=== PATIENT | female | born 1945 | race Caucasian/White ===

== ENCOUNTER 2021-07-19 11:05 | Inpatient (IN) ==
[2021-07-19] MEDS: Acetaminophen 325 MG TABLET PO PRN (23:40)
[2021-07-19] MEDS: *HR* Metformin 500 MG TABLET PO SCH (23:40)
[2021-07-19] MEDS: BuPROPion SR (12 HR) 150 MG TABLET PO SCH (23:41)
[2021-07-20 06:14] LABS: Basophils % 0.2 %; Hematocrit 37.2 % (35.3-44.9); Hemoglobin 12.2 g/dL (11.5-15.4); Immature Granulocytes % 1.7 % (0-4); Lymphocytes # 1.4 K/mcL (0.6-4.6); Lymphocytes % 7.5 %; Mean Corpuscular HGB Conc 32.8 g/dL (31.6-35.5); Mean Corpuscular Hemoglobin 25.7 pg (28.0-33.3); Mean Corpuscular Volume 78.5 fL (83.0-100.0); Monocytes # 1.4 K/mcL (0.0-1.3); Monocytes % 7.8 %; Platelet Count 214 K/mcL (140-400); Red Blood Count 4.74 M/mcL (3.82-4.97); Red Cell Distribution Width 14.6 % (11.5-14.5); Segmented Neutrophils % 82.8 %; White Blood Count 18.1 K/mcL (4.3-11.1)
[2021-07-20 06:25] LABS: Calcium 8.6 mg/dL (8.6-10.3); Potassium 4.1 mEq/L (3.5-5.1)
[2021-07-20] MEDS: GlipiZIDE 5 MG TABLET PO SCH (09:14)
[2021-07-20] MEDS: *HR* Metformin 500 MG TABLET PO SCH ×2 (09:15→21:15)
[2021-07-20] MEDS: amLODIPine 5 MG TABLET PO SCH (09:16)
[2021-07-20] MEDS: carvediloL 6.25 MG TABLET PO SCH ×2 (09:16→19:45)
[2021-07-20] MEDS: BuPROPion SR (12 HR) 150 MG TABLET PO SCH ×2 (09:16→21:14)
[2021-07-20] MEDS: CYANOCOBALAMIN PO SCH (09:17)
[2021-07-20] MEDS: FOLIC AC PO SCH (09:17)
[2021-07-20] MEDS: VIT B6 PO SCH (09:17)
[2021-07-21] MEDS: *HR* Enoxaparin 40 MG/0.4 ML SYRINGE SQ SCH (04:17)
[2021-07-21] MEDS: Levothyroxine 25 MCG TABLET PO SCH (04:17)
[2021-07-21] MEDS: *HR* Metformin 500 MG TABLET PO SCH ×2 (08:56→22:34)
[2021-07-21] MEDS: BuPROPion SR (12 HR) 150 MG TABLET PO SCH ×2 (08:56→22:34)
[2021-07-21] MEDS: GlipiZIDE 5 MG TABLET PO SCH (08:56)
[2021-07-21] MEDS: carvediloL 6.25 MG TABLET PO SCH ×2 (08:57→17:36)
[2021-07-21] MEDS: amLODIPine 5 MG TABLET PO SCH (08:57)
[2021-07-21] MEDS: CYANOCOBALAMIN PO SCH (08:58)
[2021-07-21] MEDS: VIT B6 PO SCH (08:58)
[2021-07-21] MEDS: FOLIC AC PO SCH (08:58)
[2021-07-21] MEDS: Gabapentin 100 MG CAPSULE PO SCH ×3 (12:26→22:34)
[2021-07-22 05:12] LABS: Basophils % 0.1 %; Eosinophils % 0.3 %; Hemoglobin 11.1 g/dL (11.5-15.4); Immature Granulocytes % 1.7 % (0-4); Lymphocytes # 1.3 K/mcL (0.6-4.6); Lymphocytes % 8.5 %; Mean Corpuscular HGB Conc 31.7 g/dL (31.6-35.5); Mean Corpuscular Hemoglobin 25.8 pg (28.0-33.3); Mean Corpuscular Volume 81.2 fL (83.0-100.0); Mean Platelet Volume 10.4 fL (9.4-12.4); Monocytes # 1.7 K/mcL (0.0-1.3); Monocytes % 11.2 %; Neutrophils # 11.7 K/mcL (1.6-8.9); Platelet Count 157 K/mcL (140-400); Red Blood Count 4.31 M/mcL (3.82-4.97); Red Cell Distribution Width 15.1 % (11.5-14.5); Segmented Neutrophils % 78.2 %; White Blood Count 14.9 K/mcL (4.3-11.1)
[2021-07-22 05:25] LABS: Calcium 8.6 mg/dL (8.6-10.3); Potassium 4.1 mEq/L (3.5-5.1)
[2021-07-22] MEDS: *HR* Enoxaparin 40 MG/0.4 ML SYRINGE SQ SCH ×2 (06:35→07:55)
[2021-07-22] MEDS: Levothyroxine 25 MCG TABLET PO SCH ×2 (06:35→07:55)
[2021-07-22] MEDS: carvediloL 6.25 MG TABLET PO SCH ×2 (09:37→16:06)
[2021-07-22] MEDS: Gabapentin 100 MG CAPSULE PO SCH ×4 (09:37→22:07)
[2021-07-22] MEDS: GlipiZIDE 5 MG TABLET PO SCH (09:37)
[2021-07-22] MEDS: BuPROPion SR (12 HR) 150 MG TABLET PO SCH ×2 (09:38→22:07)
[2021-07-22] MEDS: FOLIC AC PO SCH (09:38)
[2021-07-22] MEDS: VIT B6 PO SCH (09:38)
[2021-07-22] MEDS: *HR* Metformin 500 MG TABLET PO SCH ×2 (09:38→22:07)
[2021-07-22] MEDS: CYANOCOBALAMIN PO SCH (09:38)
[2021-07-22] MEDS: amLODIPine 5 MG TABLET PO SCH (09:38)
[2021-07-22] MEDS ORDERED: Ondansetron 4 MG/2 ML VIAL IVP PRN (13:38)
[2021-07-22] MEDS: Acetaminophen 325 MG TABLET PO PRN (22:07)
[2021-07-23] MEDS: Levothyroxine 25 MCG TABLET PO SCH (05:22)
[2021-07-23] MEDS: *HR* Enoxaparin 40 MG/0.4 ML SYRINGE SQ SCH (05:22)
[2021-07-23] MEDS: *HR* Metformin 500 MG TABLET PO SCH ×2 (08:30→20:45)
[2021-07-23] MEDS: GlipiZIDE 5 MG TABLET PO SCH (08:30)
[2021-07-23] MEDS: Gabapentin 100 MG CAPSULE PO SCH ×3 (08:31→20:44)
[2021-07-23] MEDS: BuPROPion SR (12 HR) 150 MG TABLET PO SCH ×2 (08:31→20:44)
[2021-07-23] MEDS: amLODIPine 5 MG TABLET PO SCH (08:31)
[2021-07-23] MEDS: carvediloL 6.25 MG TABLET PO SCH ×2 (08:31→17:12)
[2021-07-23] MEDS: VIT B6 PO SCH (08:37)
[2021-07-23] MEDS: FOLIC AC PO SCH (08:37)
[2021-07-23] MEDS: CYANOCOBALAMIN PO SCH (08:37)
[2021-07-24 04:55] LABS: Basophils % 0.1 %; Eosinophils # 0.1 K/mcL (0.0-0.6); Eosinophils % 0.7 %; Hemoglobin 10.4 g/dL (11.5-15.4); Immature Granulocytes % 0.8 % (0-4); Lymphocytes # 1.2 K/mcL (0.6-4.6); Lymphocytes % 10.7 %; Mean Corpuscular HGB Conc 30.6 g/dL (31.6-35.5); Mean Corpuscular Hemoglobin 25.4 pg (28.0-33.3); Mean Corpuscular Volume 83.1 fL (83.0-100.0); Mean Platelet Volume 10.1 fL (9.4-12.4); Monocytes % 8.7 %; Neutrophils # 8.6 K/mcL (1.6-8.9); Platelet Count 133 K/mcL (140-400); Red Blood Count 4.09 M/mcL (3.82-4.97); Red Cell Distribution Width 15.4 % (11.5-14.5); White Blood Count 10.9 K/mcL (4.3-11.1)
[2021-07-24] MEDS: *HR* Enoxaparin 40 MG/0.4 ML SYRINGE SQ SCH (05:03)
[2021-07-24] MEDS: Levothyroxine 25 MCG TABLET PO SCH (05:04)
[2021-07-24 05:10] LABS: Calcium 8.7 mg/dL (8.6-10.3); Potassium 4.9 mEq/L (3.5-5.1)
[2021-07-24] MEDS: amLODIPine 5 MG TABLET PO SCH (08:08)
[2021-07-24] MEDS: BuPROPion SR (12 HR) 150 MG TABLET PO SCH ×2 (08:08→21:00)
[2021-07-24] MEDS: carvediloL 6.25 MG TABLET PO SCH ×2 (08:08→17:15)
[2021-07-24] MEDS: GlipiZIDE 5 MG TABLET PO SCH (08:08)
[2021-07-24] MEDS: VIT B6 PO SCH (08:09)
[2021-07-24] MEDS: FOLIC AC PO SCH (08:09)
[2021-07-24] MEDS: CYANOCOBALAMIN PO SCH (08:09)
[2021-07-24] MEDS: Gabapentin 100 MG CAPSULE PO SCH ×3 (08:09→21:01)
[2021-07-24] MEDS: *HR* Metformin 500 MG TABLET PO SCH ×2 (08:09→21:01)
[2021-07-24] MEDS ORDERED: Perflutren Lipid Microsphere 1.3 ML in 0.9 % Sodium Chloride 8.7 ML IVP PRN (14:09)
[2021-07-24] MEDS ORDERED: 0.9 % Sodium Chloride 1,000 ML IVC SCH (14:15)
[2021-07-25] MEDS: *HR* Enoxaparin 40 MG/0.4 ML SYRINGE SQ SCH (04:35)
[2021-07-25] MEDS: Levothyroxine 25 MCG TABLET PO SCH (04:37)
[2021-07-25] MEDS: BuPROPion SR (12 HR) 150 MG TABLET PO SCH ×2 (08:02→20:12)
[2021-07-25] MEDS: Gabapentin 100 MG CAPSULE PO SCH ×3 (08:02→20:11)
[2021-07-25] MEDS: carvediloL 6.25 MG TABLET PO SCH ×2 (08:02→17:51)
[2021-07-25] MEDS: *HR* Metformin 500 MG TABLET PO SCH (08:02)
[2021-07-25] MEDS: GlipiZIDE 5 MG TABLET PO SCH (08:02)
[2021-07-25] MEDS: CYANOCOBALAMIN PO SCH (08:03)
[2021-07-25] MEDS: FOLIC AC PO SCH (08:03)
[2021-07-25] MEDS: VIT B6 PO SCH (08:03)
[2021-07-26] MEDS: *HR* Enoxaparin 40 MG/0.4 ML SYRINGE SQ SCH (05:43)
[2021-07-26] MEDS: Levothyroxine 25 MCG TABLET PO SCH (05:43)
[2021-07-26 05:51] LABS: Hematocrit 29.9 % (35.3-44.9); Hemoglobin 9.4 g/dL (11.5-15.4); Mean Corpuscular HGB Conc 31.4 g/dL (31.6-35.5); Mean Corpuscular Hemoglobin 26.1 pg (28.0-33.3); Mean Corpuscular Volume 83.1 fL (83.0-100.0); Mean Platelet Volume 10.5 fL (9.4-12.4); Platelet Count 124 K/mcL (140-400); Red Cell Distribution Width 15.6 % (11.5-14.5)
[2021-07-26 06:05] LABS: Calcium 8.5 mg/dL (8.6-10.3); Potassium 4.2 mEq/L (3.5-5.1)
[2021-07-26] MEDS: BuPROPion SR (12 HR) 150 MG TABLET PO SCH ×2 (08:00→20:11)
[2021-07-26] MEDS: Acetaminophen 325 MG TABLET PO PRN ×2 (08:01→20:11)
[2021-07-26] MEDS: carvediloL 6.25 MG TABLET PO SCH ×2 (08:01→15:48)
[2021-07-26] MEDS: Gabapentin 100 MG CAPSULE PO SCH ×3 (08:01→20:11)
[2021-07-26] MEDS: GlipiZIDE 5 MG TABLET PO SCH (08:01)
[2021-07-26] MEDS: FOLIC AC PO SCH (08:02)
[2021-07-26] MEDS: VIT B6 PO SCH (08:02)
[2021-07-26] MEDS: CYANOCOBALAMIN PO SCH (08:02)
[2021-07-27] MEDS: *HR* Enoxaparin 40 MG/0.4 ML SYRINGE SQ SCH (05:24)
[2021-07-27] MEDS: Levothyroxine 25 MCG TABLET PO SCH (05:24)
[2021-07-27 05:48] LABS: Basophils % 0.2 %; Eosinophils # 0.1 K/mcL (0.0-0.6); Eosinophils % 2.8 %; Hematocrit 28.6 % (35.3-44.9); Hemoglobin 9.1 g/dL (11.5-15.4); Immature Granulocytes % 1.1 % (0-4); Lymphocytes % 21.1 %; Mean Corpuscular HGB Conc 31.8 g/dL (31.6-35.5); Mean Corpuscular Hemoglobin 26.3 pg (28.0-33.3); Mean Corpuscular Volume 82.7 fL (83.0-100.0); Mean Platelet Volume 10.3 fL (9.4-12.4); Monocytes # 0.5 K/mcL (0.0-1.3); Monocytes % 10.1 %; Platelet Count 108 K/mcL (140-400); Red Blood Count 3.46 M/mcL (3.82-4.97); Red Cell Distribution Width 15.5 % (11.5-14.5); Segmented Neutrophils % 64.7 %; White Blood Count 4.7 K/mcL (4.3-11.1)
[2021-07-27] MEDS: carvediloL 6.25 MG TABLET PO SCH ×2 (08:09→16:30)
[2021-07-27] MEDS: Gabapentin 100 MG CAPSULE PO SCH ×3 (08:09→21:55)
[2021-07-27] MEDS: BuPROPion SR (12 HR) 150 MG TABLET PO SCH ×2 (08:09→21:55)
[2021-07-27] MEDS: GlipiZIDE 5 MG TABLET PO SCH (08:09)
[2021-07-27] MEDS: VIT B6 PO SCH (08:10)
[2021-07-27] MEDS: FOLIC AC PO SCH (08:10)
[2021-07-27] MEDS: CYANOCOBALAMIN PO SCH (08:10)
[2021-07-27 12:35] LABS: % Iron Saturation 8 % (15-50); Iron 20 mcg/dL (50-170); Transferrin 181 mg/dL (203-362)
[2021-07-27 12:53] LABS: Ferritin 64 ng/mL (10-120)
[2021-07-28] MEDS: Levothyroxine 25 MCG TABLET PO SCH (06:00)
[2021-07-28] MEDS: *HR* Enoxaparin 40 MG/0.4 ML SYRINGE SQ SCH (06:00)
[2021-07-28] MEDS: GlipiZIDE 5 MG TABLET PO SCH (08:37)
[2021-07-28] MEDS: BuPROPion SR (12 HR) 150 MG TABLET PO SCH ×2 (08:37→20:04)
[2021-07-28] MEDS: Ascorbic Acid 500 MG TABLET PO SCH (08:37)
[2021-07-28] MEDS: carvediloL 6.25 MG TABLET PO SCH ×2 (08:37→18:39)
[2021-07-28] MEDS: Gabapentin 100 MG CAPSULE PO SCH ×3 (08:37→20:04)
[2021-07-28] MEDS: FOLIC AC PO SCH (08:42)
[2021-07-28] MEDS: CYANOCOBALAMIN PO SCH (08:42)
[2021-07-28] MEDS: VIT B6 PO SCH (08:42)
[2021-07-28] MEDS: Acetaminophen 325 MG TABLET PO PRN (20:04)
[2021-07-29] MEDS: *HR* Enoxaparin 40 MG/0.4 ML SYRINGE SQ SCH (05:40)
[2021-07-29] MEDS: Levothyroxine 25 MCG TABLET PO SCH (05:40)
[2021-07-29] MEDS: CYANOCOBALAMIN PO SCH (07:50)
[2021-07-29] MEDS: VIT B6 PO SCH (07:50)
[2021-07-29] MEDS: FOLIC AC PO SCH (07:50)
[2021-07-29] MEDS: carvediloL 6.25 MG TABLET PO SCH ×2 (08:04→16:44)
[2021-07-29] MEDS: Gabapentin 100 MG CAPSULE PO SCH ×3 (09:01→19:36)
[2021-07-29] MEDS: BuPROPion SR (12 HR) 150 MG TABLET PO SCH ×2 (09:01→19:36)
[2021-07-29] MEDS: GlipiZIDE 5 MG TABLET PO SCH (09:01)
[2021-07-29] MEDS: Ascorbic Acid 500 MG TABLET PO SCH (09:02)
[2021-07-30] MEDS: *HR* Enoxaparin 40 MG/0.4 ML SYRINGE SQ SCH (06:20)
[2021-07-30] MEDS: Levothyroxine 25 MCG TABLET PO SCH (06:20)
[2021-07-30] MEDS: carvediloL 6.25 MG TABLET PO SCH ×2 (08:54→15:50)
[2021-07-30] MEDS: BuPROPion SR (12 HR) 150 MG TABLET PO SCH ×2 (08:54→21:18)
[2021-07-30] MEDS: Gabapentin 100 MG CAPSULE PO SCH ×3 (08:55→21:18)
[2021-07-30] MEDS: Ascorbic Acid 500 MG TABLET PO SCH (08:55)
[2021-07-30] MEDS: GlipiZIDE 5 MG TABLET PO SCH (08:55)
[2021-07-30] MEDS: CYANOCOBALAMIN PO SCH (09:01)
[2021-07-30] MEDS: VIT B6 PO SCH (09:01)
[2021-07-30] MEDS: FOLIC AC PO SCH (09:01)
[2021-07-30] MEDS: Acetaminophen 325 MG TABLET PO PRN (15:50)
[2021-07-31] MEDS: Levothyroxine 25 MCG TABLET PO SCH (05:49)
[2021-07-31] MEDS: *HR* Enoxaparin 40 MG/0.4 ML SYRINGE SQ SCH (05:49)
[2021-07-31] MEDS: BuPROPion SR (12 HR) 150 MG TABLET PO SCH ×2 (09:47→20:22)
[2021-07-31] MEDS: Ascorbic Acid 500 MG TABLET PO SCH (09:47)
[2021-07-31] MEDS: Gabapentin 100 MG CAPSULE PO SCH ×3 (09:47→20:22)
[2021-07-31] MEDS: carvediloL 6.25 MG TABLET PO SCH ×2 (09:48→14:35)
[2021-07-31] MEDS: Acetaminophen 325 MG TABLET PO PRN (09:48)
[2021-07-31] MEDS: GlipiZIDE 5 MG TABLET PO SCH (09:48)
[2021-07-31] MEDS: CYANOCOBALAMIN PO SCH (09:49)
[2021-07-31] MEDS: FOLIC AC PO SCH (09:49)
[2021-07-31] MEDS: VIT B6 PO SCH (09:49)
[2021-08-01] MEDS: Levothyroxine 25 MCG TABLET PO SCH (05:40)
[2021-08-01] MEDS: *HR* Enoxaparin 40 MG/0.4 ML SYRINGE SQ SCH (05:40)
[2021-08-01 05:53] LABS: Hematocrit 30.6 % (35.3-44.9); Hemoglobin 9.5 g/dL (11.5-15.4); Mean Corpuscular Volume 83.8 fL (83.0-100.0); Platelet Count 138 K/mcL (140-400); Red Blood Count 3.65 M/mcL (3.82-4.97); Red Cell Distribution Width 16.2 % (11.5-14.5); White Blood Count 4.3 K/mcL (4.3-11.1)
[2021-08-01 07:21] LABS: Albumin 3.1 g/dL (3.5-5.7); Albumin/Globulin Ratio 1.2 (1.1-2.2); Bilirubin,Total 0.2 mg/dL (0.3-1.0); Calcium 8.6 mg/dL (8.6-10.3); Globulin 2.5 g/dL (2.4-3.5); Magnesium 1.4 mg/dL (1.6-2.6); Potassium 4.2 mEq/L (3.5-5.1); Total Protein 5.6 g/dL (6.4-8.9)
[2021-08-01] MEDS: Ascorbic Acid 500 MG TABLET PO SCH (09:29)
[2021-08-01] MEDS: carvediloL 6.25 MG TABLET PO SCH ×2 (09:29→17:13)
[2021-08-01] MEDS: BuPROPion SR (12 HR) 150 MG TABLET PO SCH ×2 (09:29→20:37)
[2021-08-01] MEDS: GlipiZIDE 5 MG TABLET PO SCH (09:30)
[2021-08-01] MEDS: Gabapentin 100 MG CAPSULE PO SCH ×3 (09:30→20:36)
[2021-08-01] MEDS: FOLIC AC PO SCH (09:31)
[2021-08-01] MEDS: CYANOCOBALAMIN PO SCH (09:31)
[2021-08-01] MEDS: VIT B6 PO SCH (09:31)
[2021-08-01] MEDS: Magnesium Oxide 400 MG TABLET PO SCH ×2 (14:03→20:36)
[2021-08-02] MEDS: Levothyroxine 25 MCG TABLET PO SCH (04:06)
[2021-08-02] MEDS: *HR* Enoxaparin 40 MG/0.4 ML SYRINGE SQ SCH (04:06)
[2021-08-02] MEDS: carvediloL 6.25 MG TABLET PO SCH ×2 (07:56→18:41)
[2021-08-02] MEDS: BuPROPion SR (12 HR) 150 MG TABLET PO SCH ×2 (07:56→20:29)
[2021-08-02] MEDS: Ascorbic Acid 500 MG TABLET PO SCH (07:57)
[2021-08-02] MEDS: Magnesium Oxide 400 MG TABLET PO SCH ×2 (07:57→20:29)
[2021-08-02] MEDS: CYANOCOBALAMIN PO SCH (07:58)
[2021-08-02] MEDS: FOLIC AC PO SCH (07:58)
[2021-08-02] MEDS: GlipiZIDE 5 MG TABLET PO SCH (07:58)
[2021-08-02] MEDS: VIT B6 PO SCH (07:58)
[2021-08-02] MEDS: Gabapentin 100 MG CAPSULE PO SCH ×2 (07:58→18:06)
[2021-08-02] MEDS ORDERED: polyethylene glycoL 3350 17 GM POWD.PACK PO PRN (15:44)
[2021-08-02 16:47] LABS: Bilirubin,Urine Negative (Negative); Blood,Urine Negative (Negative); Clarity,Urine Clear (Clear); Color,Urine Yellow (Yellow); Glucose,Urine (UA) Normal (Normal); Ketones,Urine Negative (Negative); Leukocyte Esterase,Urine Negative (Negative); Nitrite,Urine Negative (Negative); PH,Urine 5.5 pH Units (5.0-8.0); Protein,Urine Negative (Neg-Trace); Urobilinogen,Urine Normal (Normal)
[2021-08-02] MEDS: Gabapentin 300 MG CAPSULE PO SCH (20:29)
[2021-08-03] MEDS: *HR* Enoxaparin 40 MG/0.4 ML SYRINGE SQ SCH (04:36)
[2021-08-03] MEDS: Levothyroxine 25 MCG TABLET PO SCH (04:36)
[2021-08-03] MEDS: Acetaminophen 325 MG TABLET PO PRN (08:23)
[2021-08-03] MEDS: Gabapentin 300 MG CAPSULE PO SCH ×3 (08:23→21:25)
[2021-08-03] MEDS: Magnesium Oxide 400 MG TABLET PO SCH ×2 (08:23→21:25)
[2021-08-03] MEDS: GlipiZIDE 5 MG TABLET PO SCH (08:23)
[2021-08-03] MEDS: BuPROPion SR (12 HR) 150 MG TABLET PO SCH ×2 (08:24→21:25)
[2021-08-03] MEDS: carvediloL 6.25 MG TABLET PO SCH ×2 (08:24→16:14)
[2021-08-03] MEDS: Ascorbic Acid 500 MG TABLET PO SCH (08:24)
[2021-08-03] MEDS: CYANOCOBALAMIN PO SCH (08:25)
[2021-08-03] MEDS: FOLIC AC PO SCH (08:25)
[2021-08-03] MEDS: VIT B6 PO SCH (08:25)
[2021-08-04] MEDS: *HR* Enoxaparin 40 MG/0.4 ML SYRINGE SQ SCH (04:34)
[2021-08-04] MEDS: Levothyroxine 25 MCG TABLET PO SCH (04:34)
[2021-08-04] MEDS: carvediloL 6.25 MG TABLET PO SCH ×2 (08:22→15:45)
[2021-08-04] MEDS: Gabapentin 300 MG CAPSULE PO SCH ×3 (08:22→21:26)
[2021-08-04] MEDS: GlipiZIDE 5 MG TABLET PO SCH (08:22)
[2021-08-04] MEDS: Acetaminophen 325 MG TABLET PO PRN ×2 (08:23→21:26)
[2021-08-04] MEDS: Magnesium Oxide 400 MG TABLET PO SCH ×2 (08:23→21:25)
[2021-08-04] MEDS: Ascorbic Acid 500 MG TABLET PO SCH (08:24)
[2021-08-04] MEDS: CYANOCOBALAMIN PO SCH (08:24)
[2021-08-04] MEDS: FOLIC AC PO SCH (08:24)
[2021-08-04] MEDS: VIT B6 PO SCH (08:24)
[2021-08-04] MEDS: BuPROPion SR (12 HR) 150 MG TABLET PO SCH ×2 (08:27→21:26)
[2021-08-04 19:37] VITALS: O2SAT 93
[2021-08-05] MEDS: *HR* Enoxaparin 40 MG/0.4 ML SYRINGE SQ SCH (05:20)
[2021-08-05] MEDS: Levothyroxine 25 MCG TABLET PO SCH (05:20)
[2021-08-05] MEDS: Ascorbic Acid 500 MG TABLET PO SCH (07:57)
[2021-08-05] MEDS: GlipiZIDE 5 MG TABLET PO SCH (07:58)
[2021-08-05] MEDS: Acetaminophen 325 MG TABLET PO PRN ×2 (07:58→20:19)
[2021-08-05] MEDS: BuPROPion SR (12 HR) 150 MG TABLET PO SCH ×2 (07:58→20:18)
[2021-08-05] MEDS: Gabapentin 300 MG CAPSULE PO SCH ×3 (07:58→20:18)
[2021-08-05] MEDS: carvediloL 6.25 MG TABLET PO SCH ×2 (07:58→16:18)
[2021-08-05] MEDS: CYANOCOBALAMIN PO SCH (07:59)
[2021-08-05] MEDS: FOLIC AC PO SCH (07:59)
[2021-08-05] MEDS: VIT B6 PO SCH (07:59)
[2021-08-05] MEDS: Magnesium Oxide 400 MG TABLET PO SCH ×2 (07:59→20:18)
[2021-08-06] MEDS: *HR* Enoxaparin 40 MG/0.4 ML SYRINGE SQ SCH (05:27)
[2021-08-06] MEDS: Levothyroxine 25 MCG TABLET PO SCH (05:27)
[2021-08-06] MEDS: Ascorbic Acid 500 MG TABLET PO SCH (08:39)
[2021-08-06] MEDS: GlipiZIDE 5 MG TABLET PO SCH (08:39)
[2021-08-06] MEDS: Magnesium Oxide 400 MG TABLET PO SCH (08:39)
[2021-08-06] MEDS: carvediloL 6.25 MG TABLET PO SCH (08:40)
[2021-08-06] MEDS: VIT B6 PO SCH (08:40)
[2021-08-06] MEDS: Gabapentin 300 MG CAPSULE PO SCH ×2 (08:40→14:08)
[2021-08-06] MEDS: CYANOCOBALAMIN PO SCH (08:40)
[2021-08-06] MEDS: FOLIC AC PO SCH (08:40)
[2021-08-06] MEDS: BuPROPion SR (12 HR) 150 MG TABLET PO SCH (08:40)
[2021-08-06 08:51] VITALS: PULSE 83; RESP 19; TEMP 98
[2021-08-06 10:16] VITALS: BP 152/88
== END 2021-08-06 14:15 | disposition home health service (06) | DRG 945 ==
LOC: INPGRE 19:50
PROVIDERS: ADMIT Family Medicine; ATTEND Family Medicine

== ENCOUNTER 2021-09-24 15:01 | Inpatient (IN) ==
[2021-09-24] MEDS ORDERED: D5% in Water 1,000 ML IVC PRN (15:46)
[2021-09-24] MEDS ORDERED: *HR* Dextrose 50 % in Water (Syg) 50 ML SYRINGE IVP PRN (15:46)
[2021-09-24] MEDS ORDERED: Dextrose Gel 15 GM/37.5 ML TUBE PO PRN ×2 (15:46)
[2021-09-24] MEDS: BuPROPion SR (12 HR) 150 MG TABLET PO SCH (22:39)
[2021-09-24] MEDS: Gabapentin 400 MG CAPSULE PO SCH (22:39)
[2021-09-24] MEDS: carvediloL 25 MG TABLET PO SCH (22:41)
[2021-09-24] MEDS: traZODone 50 MG TABLET PO SCH (22:43)
[2021-09-24] MEDS: Insulin LISPRO 300 UNITS/3 ML VIAL SUBQ SCH (23:11)
[2021-09-25 04:49] LABS: Basophils % 0.3 %; Eosinophils # 0.1 K/mcL (0.0-0.6); Eosinophils % 1.3 %; Hematocrit 38.2 % (35.3-44.9); Hemoglobin 12.3 g/dL (11.5-15.4); Immature Granulocytes % 0.3 % (0-4); Lymphocytes # 1.5 K/mcL (0.6-4.6); Mean Corpuscular HGB Conc 32.2 g/dL (31.6-35.5); Mean Corpuscular Hemoglobin 26.6 pg (28.0-33.3); Mean Corpuscular Volume 82.5 fL (83.0-100.0); Mean Platelet Volume 10.6 fL (9.4-12.4); Monocytes # 0.8 K/mcL (0.0-1.3); Monocytes % 10.8 %; Platelet Count 264 K/mcL (140-400); Red Blood Count 4.63 M/mcL (3.82-4.97); Red Cell Distribution Width 14.1 % (11.5-14.5); Segmented Neutrophils % 67.3 %; White Blood Count 7.4 K/mcL (4.3-11.1)
[2021-09-25 05:01] LABS: BUN/Creatinine Ratio 17 (6-26); Blood Urea Nitrogen 18 mg/dL (8-23); Calcium 9.3 mg/dL (8.6-10.3); Carbon Dioxide 24 mEq/L (23-29); Chloride 103 mEq/L (98-107); Glucose 142 mg/dL (70-105); Osmolality,Calculated 284 (280-300); Potassium 3.6 mEq/L (3.5-5.1); Sodium 135 mEq/L (136-145); eGFR For African Americans > 60 (> 60); eGFR For Non-African Americans 51 (> 60)
[2021-09-25] MEDS: *HR* Enoxaparin 40 MG/0.4 ML SYRINGE SQ SCH (06:21)
[2021-09-25] MEDS: Levothyroxine 25 MCG TABLET PO SCH (06:21)
[2021-09-25] MEDS: BuPROPion SR (12 HR) 150 MG TABLET PO SCH ×2 (07:25→20:34)
[2021-09-25] MEDS: *HR* GlipiZIDE XL (24 HR) 10 MG TABLET PO SCH (07:25)
[2021-09-25] MEDS: carvediloL 25 MG TABLET PO SCH ×2 (07:25→16:57)
[2021-09-25] MEDS: Gabapentin 400 MG CAPSULE PO SCH ×3 (07:25→20:35)
[2021-09-25] MEDS: Insulin LISPRO 300 UNITS/3 ML VIAL SUBQ SCH ×3 (07:53→16:56)
[2021-09-25] MEDS: traZODone 50 MG TABLET PO SCH (20:35)
[2021-09-26] MEDS: Insulin LISPRO 300 UNITS/3 ML VIAL SUBQ SCH ×5 (03:17→20:55)
[2021-09-26] MEDS: *HR* Enoxaparin 40 MG/0.4 ML SYRINGE SQ SCH (05:22)
[2021-09-26] MEDS: Levothyroxine 25 MCG TABLET PO SCH (05:22)
[2021-09-26] MEDS: carvediloL 25 MG TABLET PO SCH ×2 (08:01→17:19)
[2021-09-26] MEDS: BuPROPion SR (12 HR) 150 MG TABLET PO SCH ×2 (08:01→20:56)
[2021-09-26] MEDS: *HR* GlipiZIDE XL (24 HR) 10 MG TABLET PO SCH (08:01)
[2021-09-26] MEDS: Gabapentin 400 MG CAPSULE PO SCH ×3 (08:01→20:56)
[2021-09-26] MEDS: traZODone 50 MG TABLET PO SCH (20:56)
[2021-09-27] MEDS: Levothyroxine 25 MCG TABLET PO SCH (05:52)
[2021-09-27] MEDS: *HR* Enoxaparin 40 MG/0.4 ML SYRINGE SQ SCH (05:52)
[2021-09-27] MEDS: *HR* GlipiZIDE XL (24 HR) 10 MG TABLET PO SCH (08:54)
[2021-09-27] MEDS: Gabapentin 400 MG CAPSULE PO SCH ×3 (08:54→20:49)
[2021-09-27] MEDS: Insulin LISPRO 300 UNITS/3 ML VIAL SUBQ SCH ×2 (08:55→12:33)
[2021-09-27] MEDS: BuPROPion SR (12 HR) 150 MG TABLET PO SCH ×2 (08:55→20:50)
[2021-09-27] MEDS: carvediloL 25 MG TABLET PO SCH ×2 (08:55→15:50)
[2021-09-27] MEDS: traZODone 50 MG TABLET PO SCH (20:49)
[2021-09-28] MEDS: *HR* Enoxaparin 40 MG/0.4 ML SYRINGE SQ SCH (06:01)
[2021-09-28] MEDS: Levothyroxine 25 MCG TABLET PO SCH (06:01)
[2021-09-28] MEDS: BuPROPion SR (12 HR) 150 MG TABLET PO SCH ×2 (08:44→20:58)
[2021-09-28] MEDS: carvediloL 25 MG TABLET PO SCH ×2 (08:45→17:39)
[2021-09-28] MEDS: Gabapentin 400 MG CAPSULE PO SCH ×3 (08:45→20:58)
[2021-09-28] MEDS: *HR* GlipiZIDE XL (24 HR) 2.5 MG TABLET PO SCH (08:45)
[2021-09-28] MEDS: traZODone 50 MG TABLET PO SCH (20:58)
[2021-09-28 21:15] LABS: Adenovirus Not Detected (Not Detect); Bordetella Pertussis Not Detected (Not Detect); Chlamydophila pneumoniae Not Detected (Not Detect); Coronavirus 229E Not Detected (Not Detect); Coronavirus HKU1 Not Detected (Not Detect); Coronavirus NL63 Not Detected (Not Detect); Coronavirus OC43 Not Detected (Not Detect); Human Metapneumovirus Not Detected (Not Detect); Human Rhinovirus/Enterovirus Not Detected (Not Detect); Influenza A Subtype 2009 H1 Not Detected (Not Detect); Influenza B Not Detected (Not Detect); Mycoplasma pneumoniae Not Detected (Not Detect); Parainfluenza Virus 1 Not Detected (Not Detect); Parainfluenza Virus 2 Not Detected (Not Detect); Parainfluenza Virus 3 Not Detected (Not Detect); Parainfluenza Virus 4 Not Detected (Not Detect); Respiratory Syncytial Virus Not Detected (Not Detect); SARS-CoV-2 Not Detected (Not Detect)
[2021-09-29] MEDS: Levothyroxine 25 MCG TABLET PO SCH (04:29)
[2021-09-29] MEDS: *HR* Enoxaparin 40 MG/0.4 ML SYRINGE SQ SCH (04:29)
[2021-09-29 08:17] LABS: Basophils % 0.3 %; Eosinophils # 0.2 K/mcL (0.0-0.6); Eosinophils % 2.2 %; Hematocrit 35.2 % (35.3-44.9); Hemoglobin 11.3 g/dL (11.5-15.4); Immature Granulocytes % 0.3 % (0-4); Lymphocytes # 1.3 K/mcL (0.6-4.6); Lymphocytes % 13.7 %; Mean Corpuscular HGB Conc 32.1 g/dL (31.6-35.5); Mean Corpuscular Hemoglobin 26.5 pg (28.0-33.3); Mean Corpuscular Volume 82.6 fL (83.0-100.0); Monocytes # 1.1 K/mcL (0.0-1.3); Monocytes % 11.7 %; Platelet Count 246 K/mcL (140-400); Red Blood Count 4.26 M/mcL (3.82-4.97); Red Cell Distribution Width 13.7 % (11.5-14.5); Segmented Neutrophils % 71.8 %; White Blood Count 9.8 K/mcL (4.3-11.1)
[2021-09-29] MEDS: Gabapentin 400 MG CAPSULE PO SCH ×3 (08:33→20:30)
[2021-09-29] MEDS: carvediloL 25 MG TABLET PO SCH ×2 (08:33→15:59)
[2021-09-29] MEDS: *HR* GlipiZIDE XL (24 HR) 2.5 MG TABLET PO SCH (08:33)
[2021-09-29] MEDS: BuPROPion SR (12 HR) 150 MG TABLET PO SCH ×2 (08:33→20:30)
[2021-09-29 08:35] LABS: Calcium 9.2 mg/dL (8.6-10.3); Potassium 3.8 mEq/L (3.5-5.1)
[2021-09-29] MEDS: traZODone 50 MG TABLET PO SCH (20:30)
[2021-09-30] MEDS: *HR* Enoxaparin 40 MG/0.4 ML SYRINGE SQ SCH (04:53)
[2021-09-30] MEDS: Levothyroxine 25 MCG TABLET PO SCH (04:53)
[2021-09-30] MEDS: BuPROPion SR (12 HR) 150 MG TABLET PO SCH ×2 (07:46→22:16)
[2021-09-30] MEDS: *HR* GlipiZIDE XL (24 HR) 2.5 MG TABLET PO SCH (07:46)
[2021-09-30] MEDS: carvediloL 25 MG TABLET PO SCH ×2 (07:47→17:34)
[2021-09-30] MEDS: Gabapentin 400 MG CAPSULE PO SCH ×3 (07:47→22:16)
[2021-09-30] MEDS ORDERED: hydrALAZINE 25 MG TABLET PO SCH (16:00)
[2021-09-30] MEDS: hydrALAZINE 25 MG TABLET PO PRN (16:00)
[2021-09-30] MEDS: traZODone 50 MG TABLET PO SCH (22:16)
[2021-10-01] MEDS: *HR* Enoxaparin 40 MG/0.4 ML SYRINGE SQ SCH (06:44)
[2021-10-01] MEDS: hydrALAZINE 25 MG TABLET PO PRN (06:44)
[2021-10-01] MEDS: Levothyroxine 25 MCG TABLET PO SCH (06:44)
[2021-10-01] MEDS: BuPROPion SR (12 HR) 150 MG TABLET PO SCH ×2 (07:21→21:20)
[2021-10-01] MEDS: *HR* GlipiZIDE XL (24 HR) 2.5 MG TABLET PO SCH (07:21)
[2021-10-01] MEDS: carvediloL 25 MG TABLET PO SCH ×3 (07:21→17:23)
[2021-10-01] MEDS: Gabapentin 400 MG CAPSULE PO SCH ×3 (07:22→21:20)
[2021-10-01 10:13] LABS: Hematocrit 37.3 % (35.3-44.9); Hemoglobin 11.9 g/dL (11.5-15.4); Mean Corpuscular HGB Conc 31.9 g/dL (31.6-35.5); Mean Corpuscular Hemoglobin 26.3 pg (28.0-33.3); Mean Corpuscular Volume 82.5 fL (83.0-100.0); Mean Platelet Volume 9.9 fL (9.4-12.4); Platelet Count 261 K/mcL (140-400); Red Blood Count 4.52 M/mcL (3.82-4.97); Red Cell Distribution Width 14.1 % (11.5-14.5); White Blood Count 11.7 K/mcL (4.3-11.1)
[2021-10-01 10:33] LABS: Calcium 8.9 mg/dL (8.6-10.3)
[2021-10-01 14:58] LABS: Bilirubin,Urine Negative (Negative); Blood,Urine Trace-lysed (Negative); Clarity,Urine Cloudy (Clear); Color,Urine Yellow (Yellow); Glucose,Urine (UA) Normal (Normal); Ketones,Urine Negative (Negative); Leukocyte Esterase,Urine Small (Negative); Nitrite,Urine Negative (Negative); PH,Urine 5.5 pH Units (5.0-8.0); Protein,Urine 30 mg/dL (Neg-Trace); Specific Gravity,Urine >= 1.030 (1.010-1.025); Urobilinogen,Urine Normal (Normal)
[2021-10-01 15:07] LABS: Bacteria,Urine Many per hpf (None-Few); Squamous Epithelial Cell,Urine Few per hpf (None-Few)
[2021-10-01] MEDS: carvediloL 6.25 MG TABLET PO SCH (17:07)
[2021-10-01] MEDS ORDERED: levoFLOXacin 500 MG TABLET PO ONE (20:00)
[2021-10-02 04:50] LABS: Hematocrit 35.4 % (35.3-44.9); Hemoglobin 11.3 g/dL (11.5-15.4); Mean Corpuscular HGB Conc 31.9 g/dL (31.6-35.5); Mean Corpuscular Hemoglobin 26.6 pg (28.0-33.3); Mean Corpuscular Volume 83.3 fL (83.0-100.0); Mean Platelet Volume 10.1 fL (9.4-12.4); Platelet Count 279 K/mcL (140-400); Red Blood Count 4.25 M/mcL (3.82-4.97); Red Cell Distribution Width 14.5 % (11.5-14.5); White Blood Count 11.2 K/mcL (4.3-11.1)
[2021-10-02] MEDS: *HR* Enoxaparin 40 MG/0.4 ML SYRINGE SQ SCH (04:56)
[2021-10-02] MEDS: Levothyroxine 25 MCG TABLET PO SCH (04:56)
[2021-10-02 05:06] LABS: Albumin 3.4 g/dL (3.5-5.7); Albumin/Globulin Ratio 1.1 (1.1-2.2); Bilirubin,Total 0.6 mg/dL (0.3-1.0); Calcium 9.5 mg/dL (8.6-10.3); Globulin 3.2 g/dL (2.4-3.5); Magnesium 1.6 mg/dL (1.6-2.6); Total Protein 6.6 g/dL (6.4-8.9)
[2021-10-02] MEDS: BuPROPion SR (12 HR) 150 MG TABLET PO SCH ×2 (08:26→20:27)
[2021-10-02] MEDS: *HR* GlipiZIDE XL (24 HR) 2.5 MG TABLET PO SCH (08:27)
[2021-10-02] MEDS: carvediloL 6.25 MG TABLET PO SCH ×2 (08:27→15:33)
[2021-10-02] MEDS: Gabapentin 400 MG CAPSULE PO SCH ×3 (08:27→20:26)
[2021-10-02] MEDS ORDERED: levoFLOXacin 500 MG TABLET PO SCH (09:00)
[2021-10-02] MEDS: levoFLOXacin 250 MG TABLET PO SCH (20:26)
[2021-10-03] MEDS: Levothyroxine 25 MCG TABLET PO SCH (05:40)
[2021-10-03] MEDS: *HR* Enoxaparin 40 MG/0.4 ML SYRINGE SQ SCH (05:40)
[2021-10-03] MEDS: carvediloL 6.25 MG TABLET PO SCH ×2 (09:47→16:10)
[2021-10-03] MEDS: *HR* GlipiZIDE XL (24 HR) 2.5 MG TABLET PO SCH (09:48)
[2021-10-03] MEDS: BuPROPion SR (12 HR) 150 MG TABLET PO SCH ×2 (09:48→22:13)
[2021-10-03] MEDS: Gabapentin 400 MG CAPSULE PO SCH ×3 (09:48→22:13)
[2021-10-03] MEDS ORDERED: 0.9 % Sodium Chloride 500 ML IVC ONE (14:19)
[2021-10-03] MEDS: 0.9 % Sodium Chloride 1,000 ML IVC SCH (16:11)
[2021-10-03] MEDS: traZODone 50 MG TABLET PO SCH (22:13)
[2021-10-03] MEDS: levoFLOXacin 250 MG TABLET PO SCH (22:13)
[2021-10-04] MEDS: 0.9 % Sodium Chloride 1,000 ML IVC SCH ×3 (03:00→22:55)
[2021-10-04] MEDS: Levothyroxine 25 MCG TABLET PO SCH (06:00)
[2021-10-04] MEDS: *HR* Enoxaparin 40 MG/0.4 ML SYRINGE SQ SCH (06:00)
[2021-10-04 06:26] LABS: Hematocrit 32.6 % (35.3-44.9); Hemoglobin 10.3 g/dL (11.5-15.4); Mean Corpuscular HGB Conc 31.6 g/dL (31.6-35.5); Mean Corpuscular Hemoglobin 26.5 pg (28.0-33.3); Mean Corpuscular Volume 83.8 fL (83.0-100.0); Mean Platelet Volume 10.2 fL (9.4-12.4); Platelet Count 318 K/mcL (140-400); Red Blood Count 3.89 M/mcL (3.82-4.97); Red Cell Distribution Width 14.7 % (11.5-14.5); White Blood Count 9.9 K/mcL (4.3-11.1)
[2021-10-04 07:06] LABS: Albumin/Globulin Ratio 0.9 (1.1-2.2); Bilirubin,Total 0.5 mg/dL (0.3-1.0); Calcium 9.2 mg/dL (8.6-10.3); Globulin 3.2 g/dL (2.4-3.5); Magnesium 1.7 mg/dL (1.6-2.6); Potassium 3.8 mEq/L (3.5-5.1); Total Protein 6.2 g/dL (6.4-8.9)
[2021-10-04] MEDS: *HR* GlipiZIDE XL (24 HR) 2.5 MG TABLET PO SCH (09:10)
[2021-10-04] MEDS: carvediloL 6.25 MG TABLET PO SCH ×2 (09:11→16:48)
[2021-10-04] MEDS: BuPROPion SR (12 HR) 150 MG TABLET PO SCH ×2 (09:11→22:54)
[2021-10-04] MEDS: Gabapentin 400 MG CAPSULE PO SCH ×3 (09:11→22:55)
[2021-10-04] MEDS: traZODone 50 MG TABLET PO SCH (22:54)
[2021-10-04] MEDS: levoFLOXacin 250 MG TABLET PO SCH (22:55)
[2021-10-05] MEDS: *HR* Enoxaparin 40 MG/0.4 ML SYRINGE SQ SCH (06:16)
[2021-10-05] MEDS: Levothyroxine 25 MCG TABLET PO SCH (06:17)
[2021-10-05] MEDS: BuPROPion SR (12 HR) 150 MG TABLET PO SCH ×2 (08:22→19:56)
[2021-10-05] MEDS: *HR* GlipiZIDE XL (24 HR) 2.5 MG TABLET PO SCH (08:23)
[2021-10-05] MEDS: hydrALAZINE 10 MG TABLET PO PRN ×3 (08:23→19:56)
[2021-10-05] MEDS: Gabapentin 400 MG CAPSULE PO SCH ×3 (08:24→19:55)
[2021-10-05] MEDS: carvediloL 6.25 MG TABLET PO SCH ×2 (08:24→17:12)
[2021-10-05] MEDS: 0.9 % Sodium Chloride 1,000 ML IVC SCH ×2 (08:24→18:30)
[2021-10-05] MEDS ORDERED: CloNIDine Patch 0.1 MG PATCH (WEEKLY) TD SCH ×3 (10:15→23:00)
[2021-10-05] MEDS: levoFLOXacin 250 MG TABLET PO SCH (19:55)
[2021-10-05] MEDS: traZODone 50 MG TABLET PO SCH (19:55)
[2021-10-05] MEDS: CloNIDine Patch 0.2 MG PATCH (WEEKLY) TD SCH (23:31)
[2021-10-05 23:54] LABS: Bilirubin,Urine Negative (Negative); Blood,Urine Negative (Negative); Clarity,Urine Slightly Cloudy (Clear); Glucose,Urine (UA) Normal (Normal); Ketones,Urine Negative (Negative); Leukocyte Esterase,Urine Negative (Negative); Nitrite,Urine Negative (Negative); Protein,Urine Trace mg/dL (Neg-Trace); Specific Gravity,Urine >= 1.030 (1.010-1.025); Urobilinogen,Urine Normal (Normal)
[2021-10-05 23:58] LABS: Color,Urine Yellow (Yellow)
[2021-10-05 23:59] LABS: Amorphous Sediment,Urine Few per hpf (None-Few); Hyaline Casts,Urine Few per lpf (None Seen); Squamous Epithelial Cell,Urine Few per hpf (None-Few)
[2021-10-06] MEDS: Levothyroxine 25 MCG TABLET PO SCH (04:56)
[2021-10-06] MEDS: *HR* Enoxaparin 40 MG/0.4 ML SYRINGE SQ SCH (04:56)
[2021-10-06 05:21] LABS: Hematocrit 33.7 % (35.3-44.9); Hemoglobin 10.7 g/dL (11.5-15.4); Mean Corpuscular HGB Conc 31.8 g/dL (31.6-35.5); Mean Corpuscular Hemoglobin 26.3 pg (28.0-33.3); Mean Corpuscular Volume 82.8 fL (83.0-100.0); Mean Platelet Volume 10.1 fL (9.4-12.4); Platelet Count 354 K/mcL (140-400); Red Blood Count 4.07 M/mcL (3.82-4.97); Red Cell Distribution Width 14.6 % (11.5-14.5); White Blood Count 11.2 K/mcL (4.3-11.1)
[2021-10-06 05:38] LABS: Alanine Aminotransferase 79 Units/L (7-52); Albumin 2.8 g/dL (3.5-5.7); Albumin/Globulin Ratio 0.9 (1.1-2.2); Alkaline Phosphatase 86 Units/L (34-104); Aspartate Amino Transferase 64 Units/L (13-39); BUN/Creatinine Ratio 24 (6-26); Bilirubin,Total 0.5 mg/dL (0.3-1.0); Blood Urea Nitrogen 20 mg/dL (8-23); Calcium 9.4 mg/dL (8.6-10.3); Carbon Dioxide 22 mEq/L (23-29); Chloride 104 mEq/L (98-107); Globulin 3.2 g/dL (2.4-3.5); Glucose 161 mg/dL (70-105); Magnesium 1.5 mg/dL (1.6-2.6); Osmolality,Calculated 282 (280-300); Potassium 3.6 mEq/L (3.5-5.1); Sodium 133 mEq/L (136-145); eGFR For African Americans > 60 (> 60); eGFR For Non-African Americans > 60 (> 60)
[2021-10-06 06:10] LABS: Thyroid Stimulating Hormone 2.843 mcIU/mL (0.340-5.600)
[2021-10-06] MEDS: carvediloL 25 MG TABLET PO SCH ×2 (09:33→17:13)
[2021-10-06] MEDS: Gabapentin 400 MG CAPSULE PO SCH ×3 (09:33→21:42)
[2021-10-06] MEDS: *HR* GlipiZIDE XL (24 HR) 2.5 MG TABLET PO SCH (09:34)
[2021-10-06] MEDS: BuPROPion SR (12 HR) 150 MG TABLET PO SCH ×2 (09:34→21:43)
[2021-10-06] MEDS: levoFLOXacin 250 MG TABLET PO SCH (21:42)
[2021-10-06] MEDS: traZODone 50 MG TABLET PO SCH (21:42)
[2021-10-07] MEDS: Levothyroxine 25 MCG TABLET PO SCH (06:22)
[2021-10-07] MEDS: *HR* Enoxaparin 40 MG/0.4 ML SYRINGE SQ SCH (06:22)
[2021-10-07] MEDS: BuPROPion SR (12 HR) 150 MG TABLET PO SCH ×2 (08:49→21:40)
[2021-10-07] MEDS: Gabapentin 400 MG CAPSULE PO SCH ×3 (08:49→21:40)
[2021-10-07] MEDS: carvediloL 25 MG TABLET PO SCH ×2 (08:49→17:12)
[2021-10-07] MEDS: *HR* GlipiZIDE XL (24 HR) 2.5 MG TABLET PO SCH (08:49)
[2021-10-07] MEDS: levoFLOXacin 750 MG TABLET PO SCH (21:39)
[2021-10-07] MEDS: traZODone 50 MG TABLET PO SCH (21:40)
[2021-10-08] MEDS: Levothyroxine 25 MCG TABLET PO SCH (05:26)
[2021-10-08] MEDS: *HR* Enoxaparin 40 MG/0.4 ML SYRINGE SQ SCH (05:26)
[2021-10-08] MEDS: Gabapentin 400 MG CAPSULE PO SCH ×3 (07:59→21:48)
[2021-10-08] MEDS: carvediloL 25 MG TABLET PO SCH ×2 (07:59→16:14)
[2021-10-08] MEDS: *HR* GlipiZIDE XL (24 HR) 2.5 MG TABLET PO SCH (08:00)
[2021-10-08] MEDS: BuPROPion SR (12 HR) 150 MG TABLET PO SCH ×2 (08:00→21:47)
[2021-10-08] MEDS: tiZANidine 4 MG TABLET PO PRN (16:14)
[2021-10-08] MEDS: traZODone 50 MG TABLET PO SCH (21:47)
[2021-10-08] MEDS: levoFLOXacin 750 MG TABLET PO SCH (21:47)
[2021-10-09 05:24] LABS: Hemoglobin 10.2 g/dL (11.5-15.4); Mean Corpuscular HGB Conc 31.9 g/dL (31.6-35.5); Mean Corpuscular Hemoglobin 26.5 pg (28.0-33.3); Mean Corpuscular Volume 83.1 fL (83.0-100.0); Mean Platelet Volume 9.3 fL (9.4-12.4); Platelet Count 369 K/mcL (140-400); Red Blood Count 3.85 M/mcL (3.82-4.97); Red Cell Distribution Width 14.8 % (11.5-14.5); White Blood Count 10.1 K/mcL (4.3-11.1)
[2021-10-09 05:38] LABS: BUN/Creatinine Ratio 21 (6-26); Blood Urea Nitrogen 23 mg/dL (8-23); Calcium 9.1 mg/dL (8.6-10.3); Carbon Dioxide 23 mEq/L (23-29); Chloride 103 mEq/L (98-107); Glucose 139 mg/dL (70-105); Magnesium 1.8 mg/dL (1.6-2.6); Osmolality,Calculated 284 (280-300); Potassium 3.4 mEq/L (3.5-5.1); Sodium 134 mEq/L (136-145); eGFR For African Americans > 60 (> 60); eGFR For Non-African Americans 50 (> 60)
[2021-10-09] MEDS: *HR* Enoxaparin 40 MG/0.4 ML SYRINGE SQ SCH (06:42)
[2021-10-09] MEDS: Levothyroxine 25 MCG TABLET PO SCH (06:42)
[2021-10-09] MEDS: tiZANidine 4 MG TABLET PO PRN (06:42)
[2021-10-09] MEDS: *HR* GlipiZIDE XL (24 HR) 2.5 MG TABLET PO SCH (10:03)
[2021-10-09] MEDS: BuPROPion SR (12 HR) 150 MG TABLET PO SCH ×2 (10:03→20:23)
[2021-10-09] MEDS: Gabapentin 400 MG CAPSULE PO SCH ×3 (10:04→20:22)
[2021-10-09] MEDS: carvediloL 25 MG TABLET PO SCH ×2 (10:04→17:05)
[2021-10-09] MEDS ORDERED: Isovue-370 500 ML BOTTLE IVP ONE (11:45)
[2021-10-09] MEDS: traZODone 50 MG TABLET PO SCH (20:22)
[2021-10-09] MEDS: levoFLOXacin 750 MG TABLET PO SCH (20:23)
[2021-10-10] MEDS: Levothyroxine 25 MCG TABLET PO SCH (05:11)
[2021-10-10] MEDS: *HR* Enoxaparin 40 MG/0.4 ML SYRINGE SQ SCH (05:12)
[2021-10-10] MEDS: *HR* GlipiZIDE XL (24 HR) 2.5 MG TABLET PO SCH (08:49)
[2021-10-10] MEDS: Gabapentin 400 MG CAPSULE PO SCH ×3 (08:49→19:53)
[2021-10-10] MEDS: carvediloL 25 MG TABLET PO SCH ×2 (08:49→17:11)
[2021-10-10] MEDS: BuPROPion SR (12 HR) 150 MG TABLET PO SCH ×2 (08:50→19:53)
[2021-10-10] MEDS ORDERED: Bisacodyl 10 MG RECTAL SUPPOSITORY RC PRN (14:58)
[2021-10-10] MEDS: *HR* Enoxaparin 100 MG/ML SYRINGE SQ SCH (17:11)
[2021-10-10] MEDS: traZODone 50 MG TABLET PO SCH (19:54)
[2021-10-10] MEDS: levoFLOXacin 750 MG TABLET PO SCH (19:55)
[2021-10-10] MEDS: Sennosides 8.6 MG TABLET PO SCH (20:10)
[2021-10-11] MEDS: Levothyroxine 25 MCG TABLET PO SCH (05:58)
[2021-10-11 05:59] LABS: Hematocrit 36.2 % (35.3-44.9); Hemoglobin 11.5 g/dL (11.5-15.4); Mean Corpuscular HGB Conc 31.8 g/dL (31.6-35.5); Mean Corpuscular Hemoglobin 26.6 pg (28.0-33.3); Mean Corpuscular Volume 83.6 fL (83.0-100.0); Mean Platelet Volume 9.3 fL (9.4-12.4); Platelet Count 364 K/mcL (140-400); Red Blood Count 4.33 M/mcL (3.82-4.97); Red Cell Distribution Width 14.6 % (11.5-14.5); White Blood Count 10.5 K/mcL (4.3-11.1)
[2021-10-11] MEDS: *HR* Enoxaparin 100 MG/ML SYRINGE SQ SCH ×2 (06:02→16:41)
[2021-10-11 06:18] LABS: Alanine Aminotransferase 28 Units/L (7-52); Albumin 2.8 g/dL (3.5-5.7); Alkaline Phosphatase 67 Units/L (34-104); Aspartate Amino Transferase 14 Units/L (13-39); BUN/Creatinine Ratio 18 (6-26); Bilirubin,Total 0.4 mg/dL (0.3-1.0); Blood Urea Nitrogen 17 mg/dL (8-23); Calcium 9.2 mg/dL (8.6-10.3); Carbon Dioxide 25 mEq/L (23-29); Chloride 104 mEq/L (98-107); Globulin 2.8 g/dL (2.4-3.5); Glucose 142 mg/dL (70-105); Magnesium 1.4 mg/dL (1.6-2.6); Osmolality,Calculated 286 (280-300); Potassium 4.1 mEq/L (3.5-5.1); Sodium 136 mEq/L (136-145); Total Protein 5.6 g/dL (6.4-8.9); eGFR For African Americans > 60 (> 60); eGFR For Non-African Americans 58 (> 60)
[2021-10-11] MEDS: Sennosides 8.6 MG TABLET PO SCH ×2 (08:21→22:26)
[2021-10-11] MEDS: *HR* GlipiZIDE XL (24 HR) 2.5 MG TABLET PO SCH (08:22)
[2021-10-11] MEDS: Gabapentin 400 MG CAPSULE PO SCH ×3 (08:22→22:26)
[2021-10-11] MEDS: BuPROPion SR (12 HR) 150 MG TABLET PO SCH ×2 (08:22→22:27)
[2021-10-11] MEDS: carvediloL 25 MG TABLET PO SCH ×2 (08:23→16:41)
[2021-10-11] MEDS: levoFLOXacin 750 MG TABLET PO SCH (22:27)
[2021-10-11] MEDS: traZODone 50 MG TABLET PO SCH (22:27)
[2021-10-12] MEDS: *HR* Enoxaparin 100 MG/ML SYRINGE SQ SCH ×2 (05:36→17:24)
[2021-10-12] MEDS: Levothyroxine 25 MCG TABLET PO SCH (05:39)
[2021-10-12] MEDS: BuPROPion SR (12 HR) 150 MG TABLET PO SCH ×2 (08:10→20:17)
[2021-10-12] MEDS: Sennosides 8.6 MG TABLET PO SCH ×2 (08:11→20:17)
[2021-10-12] MEDS: *HR* GlipiZIDE XL (24 HR) 2.5 MG TABLET PO SCH (08:11)
[2021-10-12] MEDS: carvediloL 25 MG TABLET PO SCH ×2 (08:11→15:58)
[2021-10-12] MEDS: Gabapentin 400 MG CAPSULE PO SCH ×3 (08:11→20:18)
[2021-10-12] MEDS: Magnesium Oxide 400 MG TABLET PO SCH (10:59)
[2021-10-12] MEDS: traZODone 50 MG TABLET PO SCH (20:17)
[2021-10-12] MEDS: levoFLOXacin 750 MG TABLET PO SCH (20:17)
[2021-10-13] MEDS: Levothyroxine 25 MCG TABLET PO SCH (05:04)
[2021-10-13] MEDS: *HR* Enoxaparin 100 MG/ML SYRINGE SQ SCH ×2 (05:05→17:21)
[2021-10-13] MEDS: CloNIDine Patch 0.2 MG PATCH (WEEKLY) TD SCH (05:10)
[2021-10-13] MEDS: Gabapentin 400 MG CAPSULE PO SCH ×3 (08:06→20:25)
[2021-10-13] MEDS: BuPROPion SR (12 HR) 150 MG TABLET PO SCH ×2 (08:07→20:25)
[2021-10-13] MEDS: Sennosides 8.6 MG TABLET PO SCH ×2 (08:07→20:25)
[2021-10-13] MEDS: carvediloL 25 MG TABLET PO SCH ×2 (08:07→17:22)
[2021-10-13] MEDS: *HR* GlipiZIDE XL (24 HR) 2.5 MG TABLET PO SCH (08:07)
[2021-10-13] MEDS: Magnesium Oxide 400 MG TABLET PO SCH (08:09)
[2021-10-13] MEDS: traZODone 50 MG TABLET PO SCH (20:25)
[2021-10-14] MEDS: Levothyroxine 25 MCG TABLET PO SCH (05:38)
[2021-10-14] MEDS: *HR* Enoxaparin 100 MG/ML SYRINGE SQ SCH ×2 (05:38→16:39)
[2021-10-14] MEDS: BuPROPion SR (12 HR) 150 MG TABLET PO SCH ×2 (10:16→20:51)
[2021-10-14] MEDS: carvediloL 25 MG TABLET PO SCH ×2 (10:16→16:39)
[2021-10-14] MEDS: Gabapentin 400 MG CAPSULE PO SCH ×3 (10:16→20:52)
[2021-10-14] MEDS: *HR* GlipiZIDE XL (24 HR) 2.5 MG TABLET PO SCH (10:16)
[2021-10-14] MEDS: Sennosides 8.6 MG TABLET PO SCH ×2 (10:16→20:51)
[2021-10-14] MEDS: Magnesium Oxide 400 MG TABLET PO SCH (10:17)
[2021-10-14] MEDS: traZODone 50 MG TABLET PO SCH (20:50)
[2021-10-15] MEDS: *HR* Enoxaparin 100 MG/ML SYRINGE SQ SCH ×2 (04:36→16:44)
[2021-10-15] MEDS: Levothyroxine 25 MCG TABLET PO SCH (04:37)
[2021-10-15] MEDS: carvediloL 25 MG TABLET PO SCH ×2 (08:11→16:44)
[2021-10-15] MEDS: BuPROPion SR (12 HR) 150 MG TABLET PO SCH ×2 (08:11→20:41)
[2021-10-15] MEDS: Magnesium Oxide 400 MG TABLET PO SCH (08:11)
[2021-10-15] MEDS: *HR* GlipiZIDE XL (24 HR) 2.5 MG TABLET PO SCH (08:12)
[2021-10-15] MEDS: Gabapentin 400 MG CAPSULE PO SCH ×3 (08:12→20:41)
[2021-10-15] MEDS: Sennosides 8.6 MG TABLET PO SCH ×2 (08:12→20:41)
[2021-10-15] MEDS ORDERED: Warfarin perPT PO PRN (11:48)
[2021-10-15 12:40] LABS: INR 1.4; Prothrombin Time 15.1 Seconds (9.4-12.1)
[2021-10-15] MEDS ORDERED: *HR* Warfarin 5 MG TABLET PO ONE (18:00)
[2021-10-15] MEDS ORDERED: *HR* Warfarin 2.5 MG TABLET PO ONE (18:00)
[2021-10-15] MEDS: traZODone 50 MG TABLET PO SCH (20:41)
[2021-10-16] MEDS ORDERED: *HR* HYDROcodone/Acet 5/325 mg TABLET PO ONE (03:33)
[2021-10-16 04:49] LABS: Hematocrit 31.9 % (35.3-44.9); Mean Corpuscular HGB Conc 31.3 g/dL (31.6-35.5); Mean Corpuscular Volume 82.9 fL (83.0-100.0); Mean Platelet Volume 9.2 fL (9.4-12.4); Platelet Count 263 K/mcL (140-400); Red Blood Count 3.85 M/mcL (3.82-4.97); Red Cell Distribution Width 14.6 % (11.5-14.5); White Blood Count 8.5 K/mcL (4.3-11.1)
[2021-10-16] MEDS: Levothyroxine 25 MCG TABLET PO SCH (04:51)
[2021-10-16] MEDS: *HR* Enoxaparin 100 MG/ML SYRINGE SQ SCH ×2 (04:51→17:45)
[2021-10-16 04:55] LABS: INR 1.4; Prothrombin Time 15.8 Seconds (9.4-12.1)
[2021-10-16 05:09] LABS: Alanine Aminotransferase 17 Units/L (7-52); Albumin 2.9 g/dL (3.5-5.7); Albumin/Globulin Ratio 1.1 (1.1-2.2); Alkaline Phosphatase 63 Units/L (34-104); Aspartate Amino Transferase 12 Units/L (13-39); BUN/Creatinine Ratio 10 (6-26); Bilirubin,Total 0.3 mg/dL (0.3-1.0); Blood Urea Nitrogen 10 mg/dL (8-23); Calcium 9.1 mg/dL (8.6-10.3); Carbon Dioxide 27 mEq/L (23-29); Chloride 101 mEq/L (98-107); Globulin 2.6 g/dL (2.4-3.5); Glucose 128 mg/dL (70-105); Magnesium 1.3 mg/dL (1.6-2.6); Osmolality,Calculated 279 (280-300); Potassium 4.2 mEq/L (3.5-5.1); Sodium 134 mEq/L (136-145); Total Protein 5.5 g/dL (6.4-8.9); eGFR For African Americans > 60 (> 60); eGFR For Non-African Americans 56 (> 60)
[2021-10-16] MEDS: BuPROPion SR (12 HR) 150 MG TABLET PO SCH ×2 (08:29→20:59)
[2021-10-16] MEDS: Magnesium Oxide 400 MG TABLET PO SCH ×2 (08:29→20:59)
[2021-10-16] MEDS: carvediloL 25 MG TABLET PO SCH ×2 (08:29→17:44)
[2021-10-16] MEDS: Gabapentin 400 MG CAPSULE PO SCH ×3 (08:29→20:58)
[2021-10-16] MEDS: Sennosides 8.6 MG TABLET PO SCH ×2 (08:29→20:59)
[2021-10-16] MEDS: *HR* GlipiZIDE XL (24 HR) 2.5 MG TABLET PO SCH (08:29)
[2021-10-16] MEDS ORDERED: *HR* Warfarin 2.5 MG TABLET PO ONE (18:00)
[2021-10-16] MEDS: traZODone 50 MG TABLET PO SCH (20:59)
[2021-10-17] MEDS: Levothyroxine 25 MCG TABLET PO SCH (03:49)
[2021-10-17] MEDS: *HR* Enoxaparin 100 MG/ML SYRINGE SQ SCH ×2 (03:50→17:08)
[2021-10-17 06:09] LABS: INR 1.5; Prothrombin Time 16.3 Seconds (9.4-12.1)
[2021-10-17] MEDS: Sennosides 8.6 MG TABLET PO SCH ×2 (09:27→20:28)
[2021-10-17] MEDS: carvediloL 25 MG TABLET PO SCH ×2 (09:28→17:08)
[2021-10-17] MEDS: *HR* GlipiZIDE XL (24 HR) 2.5 MG TABLET PO SCH (09:28)
[2021-10-17] MEDS: Gabapentin 400 MG CAPSULE PO SCH ×3 (09:28→20:27)
[2021-10-17] MEDS: BuPROPion SR (12 HR) 150 MG TABLET PO SCH ×2 (09:28→20:27)
[2021-10-17] MEDS: Magnesium Oxide 400 MG TABLET PO SCH ×2 (09:28→20:28)
[2021-10-17] MEDS: CloNIDine Patch 0.3 MG PATCH (WEEKLY) TD SCH (17:23)
[2021-10-17] MEDS ORDERED: *HR* Warfarin 2.5 MG TABLET PO ONE (18:00)
[2021-10-17] MEDS: traZODone 50 MG TABLET PO SCH (20:28)
[2021-10-18] MEDS: Levothyroxine 25 MCG TABLET PO SCH (05:20)
[2021-10-18] MEDS: *HR* Enoxaparin 100 MG/ML SYRINGE SQ SCH ×2 (05:23→17:07)
[2021-10-18 06:38] LABS: INR 1.5; Prothrombin Time 16.9 Seconds (9.4-12.1)
[2021-10-18] MEDS: Gabapentin 400 MG CAPSULE PO SCH ×3 (08:12→20:32)
[2021-10-18] MEDS: Sennosides 8.6 MG TABLET PO SCH ×2 (08:12→20:32)
[2021-10-18] MEDS: *HR* GlipiZIDE XL (24 HR) 2.5 MG TABLET PO SCH (08:12)
[2021-10-18] MEDS: BuPROPion SR (12 HR) 150 MG TABLET PO SCH ×2 (08:12→20:32)
[2021-10-18] MEDS: carvediloL 25 MG TABLET PO SCH ×2 (08:12→17:06)
[2021-10-18] MEDS: Magnesium Oxide 400 MG TABLET PO SCH ×2 (08:13→20:32)
[2021-10-18 08:25] LABS: Hematocrit 34.3 % (35.3-44.9); Hemoglobin 10.6 g/dL (11.5-15.4); Mean Corpuscular HGB Conc 30.9 g/dL (31.6-35.5); Mean Corpuscular Volume 84.1 fL (83.0-100.0); Mean Platelet Volume 9.1 fL (9.4-12.4); Platelet Count 332 K/mcL (140-400); Red Blood Count 4.08 M/mcL (3.82-4.97); Red Cell Distribution Width 14.8 % (11.5-14.5)
[2021-10-18 08:43] LABS: Alanine Aminotransferase 12 Units/L (7-52); Albumin/Globulin Ratio 0.9 (1.1-2.2); Alkaline Phosphatase 61 Units/L (34-104); Aspartate Amino Transferase 9 Units/L (13-39); BUN/Creatinine Ratio 10 (6-26); Bilirubin,Total 0.4 mg/dL (0.3-1.0); Blood Urea Nitrogen 11 mg/dL (8-23); Calcium 9.1 mg/dL (8.6-10.3); Carbon Dioxide 29 mEq/L (23-29); Chloride 100 mEq/L (98-107); Globulin 3.4 g/dL (2.4-3.5); Glucose 144 mg/dL (70-105); Magnesium 1.9 mg/dL (1.6-2.6); Osmolality,Calculated 282 (280-300); Potassium 4.4 mEq/L (3.5-5.1); Sodium 135 mEq/L (136-145); Total Protein 6.4 g/dL (6.4-8.9); eGFR For African Americans > 60 (> 60); eGFR For Non-African Americans 51 (> 60)
[2021-10-18] MEDS ORDERED: *HR* Warfarin 4 MG TABLET PO ONE (18:00)
[2021-10-18] MEDS: traZODone 50 MG TABLET PO SCH (20:32)
[2021-10-19 04:10] LABS: Bilirubin,Urine Negative (Negative); Blood,Urine Negative (Negative); Clarity,Urine Clear (Clear); Color,Urine Yellow (Yellow); Glucose,Urine (UA) Normal (Normal); Ketones,Urine Negative (Negative); Leukocyte Esterase,Urine Negative (Negative); Nitrite,Urine Negative (Negative); PH,Urine 5.5 pH Units (5.0-8.0); Protein,Urine Negative (Neg-Trace); Specific Gravity,Urine >= 1.030 (1.010-1.025); Urobilinogen,Urine Normal (Normal)
[2021-10-19] MEDS: Levothyroxine 25 MCG TABLET PO SCH (05:02)
[2021-10-19] MEDS: *HR* Enoxaparin 100 MG/ML SYRINGE SQ SCH ×2 (05:03→16:11)
[2021-10-19 06:36] LABS: INR 1.8; Prothrombin Time 20.1 Seconds (9.4-12.1)
[2021-10-19] MEDS: carvediloL 25 MG TABLET PO SCH ×2 (08:10→16:11)
[2021-10-19] MEDS: *HR* GlipiZIDE XL (24 HR) 2.5 MG TABLET PO SCH (08:11)
[2021-10-19] MEDS: Sennosides 8.6 MG TABLET PO SCH ×2 (08:11→20:17)
[2021-10-19] MEDS: Magnesium Oxide 400 MG TABLET PO SCH ×2 (08:11→20:18)
[2021-10-19] MEDS: BuPROPion SR (12 HR) 150 MG TABLET PO SCH ×2 (08:11→20:17)
[2021-10-19] MEDS: Gabapentin 400 MG CAPSULE PO SCH ×3 (08:11→20:18)
[2021-10-19] MEDS ORDERED: *HR* Warfarin 4 MG TABLET PO ONE (18:00)
[2021-10-19] MEDS: traZODone 50 MG TABLET PO SCH (20:17)
[2021-10-20] MEDS: Levothyroxine 25 MCG TABLET PO SCH (05:18)
[2021-10-20] MEDS: *HR* Enoxaparin 100 MG/ML SYRINGE SQ SCH ×2 (05:20→16:28)
[2021-10-20] MEDS: Sennosides 8.6 MG TABLET PO SCH ×2 (08:01→19:56)
[2021-10-20] MEDS: Gabapentin 400 MG CAPSULE PO SCH ×3 (08:01→19:55)
[2021-10-20] MEDS: carvediloL 25 MG TABLET PO SCH ×2 (08:01→16:28)
[2021-10-20] MEDS: *HR* GlipiZIDE XL (24 HR) 2.5 MG TABLET PO SCH (08:01)
[2021-10-20] MEDS: Magnesium Oxide 400 MG TABLET PO SCH ×2 (08:02→19:57)
[2021-10-20] MEDS: BuPROPion SR (12 HR) 150 MG TABLET PO SCH ×2 (08:02→19:56)
[2021-10-20] MEDS ORDERED: methocarbamoL 500 MG TABLET PO ONE (10:00)
[2021-10-20] MEDS ORDERED: *HR* Warfarin 4 MG TABLET PO ONE (18:00)
[2021-10-20] MEDS: traZODone 50 MG TABLET PO SCH (19:55)
[2021-10-21 04:19] LABS: INR 2.5; Prothrombin Time 27.4 Seconds (9.4-12.1)
[2021-10-21] MEDS: *HR* Enoxaparin 100 MG/ML SYRINGE SQ SCH (04:57)
[2021-10-21] MEDS: Levothyroxine 25 MCG TABLET PO SCH (04:59)
[2021-10-21] MEDS: BuPROPion SR (12 HR) 150 MG TABLET PO SCH ×2 (08:17→19:26)
[2021-10-21] MEDS: Gabapentin 400 MG CAPSULE PO SCH ×3 (08:17→19:27)
[2021-10-21] MEDS: Sennosides 8.6 MG TABLET PO SCH ×2 (08:17→19:28)
[2021-10-21] MEDS: carvediloL 25 MG TABLET PO SCH ×2 (08:17→16:11)
[2021-10-21] MEDS: *HR* GlipiZIDE XL (24 HR) 2.5 MG TABLET PO SCH (08:17)
[2021-10-21] MEDS: Magnesium Oxide 400 MG TABLET PO SCH ×2 (08:18→19:27)
[2021-10-21] MEDS: *HR* Enoxaparin 80 MG/0.8 ML SYRINGE SQ SCH (17:47)
[2021-10-21] MEDS ORDERED: *HR* Warfarin 2.5 MG TABLET PO ONE (18:00)
[2021-10-21] MEDS: traZODone 50 MG TABLET PO SCH (19:26)
[2021-10-22] MEDS: Levothyroxine 25 MCG TABLET PO SCH (04:48)
[2021-10-22] MEDS: *HR* Enoxaparin 80 MG/0.8 ML SYRINGE SQ SCH ×2 (04:50→17:10)
[2021-10-22 04:53] LABS: INR 2.4; Prothrombin Time 26.8 Seconds (9.4-12.1)
[2021-10-22] MEDS: Sennosides 8.6 MG TABLET PO SCH ×2 (08:26→20:39)
[2021-10-22] MEDS: Magnesium Oxide 400 MG TABLET PO SCH ×2 (08:27→20:39)
[2021-10-22] MEDS: carvediloL 25 MG TABLET PO SCH ×2 (08:27→17:11)
[2021-10-22] MEDS: *HR* GlipiZIDE XL (24 HR) 2.5 MG TABLET PO SCH (08:27)
[2021-10-22] MEDS: Gabapentin 400 MG CAPSULE PO SCH ×3 (08:27→20:38)
[2021-10-22] MEDS: BuPROPion SR (12 HR) 150 MG TABLET PO SCH ×2 (08:28→20:39)
[2021-10-22] MEDS ORDERED: *HR* Warfarin 3 MG TABLET PO ONE (18:00)
[2021-10-22] MEDS: methocarbamoL 500 MG TABLET PO PRN (20:38)
[2021-10-22] MEDS: traZODone 50 MG TABLET PO SCH (20:39)
[2021-10-23 04:46] LABS: INR 2.6; Prothrombin Time 29.3 Seconds (9.4-12.1)
[2021-10-23] MEDS: Levothyroxine 25 MCG TABLET PO SCH (05:39)
[2021-10-23] MEDS: *HR* Enoxaparin 80 MG/0.8 ML SYRINGE SQ SCH ×2 (05:42→18:17)
[2021-10-23] MEDS: *HR* GlipiZIDE XL (24 HR) 2.5 MG TABLET PO SCH (08:43)
[2021-10-23] MEDS: Magnesium Oxide 400 MG TABLET PO SCH ×2 (08:43→21:17)
[2021-10-23] MEDS: methocarbamoL 500 MG TABLET PO PRN ×2 (08:43→21:17)
[2021-10-23] MEDS: carvediloL 25 MG TABLET PO SCH ×2 (08:43→15:41)
[2021-10-23] MEDS: Sennosides 8.6 MG TABLET PO SCH ×2 (08:43→21:17)
[2021-10-23] MEDS: Gabapentin 400 MG CAPSULE PO SCH ×3 (08:43→21:17)
[2021-10-23] MEDS: BuPROPion SR (12 HR) 150 MG TABLET PO SCH ×2 (08:43→21:18)
[2021-10-23] MEDS ORDERED: *HR* Warfarin 3 MG TABLET PO ONE (18:00)
[2021-10-23] MEDS: traZODone 50 MG TABLET PO SCH (21:17)
[2021-10-24] MEDS: *HR* Enoxaparin 80 MG/0.8 ML SYRINGE SQ SCH (06:01)
[2021-10-24] MEDS: Levothyroxine 25 MCG TABLET PO SCH (06:01)
[2021-10-24 06:26] LABS: INR 2.2; Prothrombin Time 24.7 Seconds (9.4-12.1)
[2021-10-24] MEDS: Gabapentin 400 MG CAPSULE PO SCH ×3 (08:00→22:05)
[2021-10-24] MEDS: *HR* GlipiZIDE XL (24 HR) 2.5 MG TABLET PO SCH (08:00)
[2021-10-24] MEDS: BuPROPion SR (12 HR) 150 MG TABLET PO SCH ×2 (08:00→22:05)
[2021-10-24] MEDS: carvediloL 25 MG TABLET PO SCH ×2 (08:00→17:04)
[2021-10-24] MEDS: Magnesium Oxide 400 MG TABLET PO SCH ×2 (08:01→22:05)
[2021-10-24] MEDS: Sennosides 8.6 MG TABLET PO SCH ×2 (08:01→22:05)
[2021-10-24 13:39] LABS: Hematocrit 34.9 % (35.3-44.9); Hemoglobin 10.6 g/dL (11.5-15.4); Mean Corpuscular HGB Conc 30.4 g/dL (31.6-35.5); Mean Corpuscular Hemoglobin 25.7 pg (28.0-33.3); Mean Corpuscular Volume 84.5 fL (83.0-100.0); Mean Platelet Volume 9.4 fL (9.4-12.4); Platelet Count 396 K/mcL (140-400); Red Blood Count 4.13 M/mcL (3.82-4.97); Red Cell Distribution Width 14.6 % (11.5-14.5); White Blood Count 7.7 K/mcL (4.3-11.1)
[2021-10-24 13:58] LABS: Albumin 3.2 g/dL (3.5-5.7); Albumin/Globulin Ratio 0.9 (1.1-2.2); Bilirubin,Total 0.2 mg/dL (0.3-1.0); Calcium 9.3 mg/dL (8.6-10.3); Globulin 3.6 g/dL (2.4-3.5); Potassium 3.9 mEq/L (3.5-5.1); Total Protein 6.8 g/dL (6.4-8.9)
[2021-10-24 14:11] LABS: Thyroid Stimulating Hormone 3.413 mcIU/mL (0.340-5.600)
[2021-10-24] MEDS: CloNIDine Patch 0.3 MG PATCH (WEEKLY) TD SCH (17:04)
[2021-10-24] MEDS ORDERED: *HR* Warfarin 4 MG TABLET PO ONE (18:00)
[2021-10-24] MEDS: traZODone 50 MG TABLET PO SCH (22:05)
[2021-10-24] MEDS: methocarbamoL 500 MG TABLET PO PRN (22:05)
[2021-10-25 06:33] LABS: INR 2.3; Prothrombin Time 25.6 Seconds (9.4-12.1)
[2021-10-25] MEDS: Levothyroxine 25 MCG TABLET PO SCH (07:07)
[2021-10-25] MEDS: *HR* GlipiZIDE XL (24 HR) 2.5 MG TABLET PO SCH (08:11)
[2021-10-25] MEDS: BuPROPion SR (12 HR) 150 MG TABLET PO SCH ×2 (08:11→22:23)
[2021-10-25] MEDS: Gabapentin 400 MG CAPSULE PO SCH ×3 (08:11→22:22)
[2021-10-25] MEDS: Sennosides 8.6 MG TABLET PO SCH ×2 (08:12→22:23)
[2021-10-25] MEDS: Magnesium Oxide 400 MG TABLET PO SCH ×2 (08:12→22:22)
[2021-10-25] MEDS: carvediloL 25 MG TABLET PO SCH ×2 (08:12→17:22)
[2021-10-25] MEDS ORDERED: *HR* Warfarin 4 MG TABLET PO ONE (18:00)
[2021-10-25] MEDS: traZODone 50 MG TABLET PO SCH (22:23)
[2021-10-25] MEDS: methocarbamoL 500 MG TABLET PO PRN (22:23)
[2021-10-26 06:04] LABS: INR 2.4; Prothrombin Time 26.3 Seconds (9.4-12.1)
[2021-10-26] MEDS: Levothyroxine 25 MCG TABLET PO SCH (06:17)
[2021-10-26] MEDS: Gabapentin 400 MG CAPSULE PO SCH ×3 (08:13→21:51)
[2021-10-26] MEDS: Sennosides 8.6 MG TABLET PO SCH ×2 (08:14→21:52)
[2021-10-26] MEDS: Magnesium Oxide 400 MG TABLET PO SCH ×2 (08:14→21:51)
[2021-10-26] MEDS: BuPROPion SR (12 HR) 150 MG TABLET PO SCH ×2 (08:14→21:51)
[2021-10-26] MEDS: carvediloL 25 MG TABLET PO SCH ×2 (08:14→17:17)
[2021-10-26] MEDS: *HR* GlipiZIDE XL (24 HR) 2.5 MG TABLET PO SCH (08:14)
[2021-10-26] MEDS ORDERED: *HR* Warfarin 4 MG TABLET PO ONE (18:00)
[2021-10-26] MEDS: traZODone 50 MG TABLET PO SCH (21:50)
[2021-10-26] MEDS: methocarbamoL 500 MG TABLET PO PRN (21:51)
[2021-10-27] MEDS: Levothyroxine 25 MCG TABLET PO SCH (05:26)
[2021-10-27 06:27] LABS: INR 2.4; Prothrombin Time 26.2 Seconds (9.4-12.1)
[2021-10-27] MEDS: carvediloL 25 MG TABLET PO SCH ×2 (07:48→17:10)
[2021-10-27] MEDS: Gabapentin 400 MG CAPSULE PO SCH ×3 (08:07→19:26)
[2021-10-27] MEDS: Magnesium Oxide 400 MG TABLET PO SCH ×2 (08:07→19:26)
[2021-10-27] MEDS: *HR* GlipiZIDE XL (24 HR) 2.5 MG TABLET PO SCH (08:08)
[2021-10-27] MEDS: Sennosides 8.6 MG TABLET PO SCH ×2 (08:08→19:26)
[2021-10-27] MEDS: BuPROPion SR (12 HR) 150 MG TABLET PO SCH ×2 (08:08→19:26)
[2021-10-27] MEDS ORDERED: *HR* Warfarin 4 MG TABLET PO ONE (18:00)
[2021-10-27] MEDS: traZODone 50 MG TABLET PO SCH (19:26)
[2021-10-27] MEDS: methocarbamoL 500 MG TABLET PO PRN (19:26)
[2021-10-28] MEDS: Levothyroxine 25 MCG TABLET PO SCH (04:40)
[2021-10-28 05:02] LABS: INR 2.3; Prothrombin Time 25.5 Seconds (9.4-12.1)
[2021-10-28] MEDS: carvediloL 25 MG TABLET PO SCH ×2 (07:41→17:38)
[2021-10-28] MEDS: *HR* GlipiZIDE XL (24 HR) 2.5 MG TABLET PO SCH (07:41)
[2021-10-28] MEDS: Sennosides 8.6 MG TABLET PO SCH ×2 (07:41→20:45)
[2021-10-28] MEDS: BuPROPion SR (12 HR) 150 MG TABLET PO SCH ×2 (07:41→20:44)
[2021-10-28] MEDS: Gabapentin 400 MG CAPSULE PO SCH ×3 (07:41→20:44)
[2021-10-28] MEDS: Magnesium Oxide 400 MG TABLET PO SCH ×2 (07:43→20:45)
[2021-10-28] MEDS ORDERED: *HR* Warfarin 4 MG TABLET PO ONE (18:00)
[2021-10-28] MEDS: traZODone 50 MG TABLET PO SCH (20:45)
[2021-10-28] MEDS: methocarbamoL 500 MG TABLET PO PRN (20:45)
[2021-10-29 04:55] LABS: INR 2.6; Prothrombin Time 29.1 Seconds (9.4-12.1)
[2021-10-29] MEDS: Levothyroxine 25 MCG TABLET PO SCH (06:21)
[2021-10-29] MEDS: Magnesium Oxide 400 MG TABLET PO SCH ×2 (08:19→20:23)
[2021-10-29] MEDS: *HR* GlipiZIDE XL (24 HR) 2.5 MG TABLET PO SCH (08:20)
[2021-10-29] MEDS: Gabapentin 400 MG CAPSULE PO SCH (08:20)
[2021-10-29] MEDS: Sennosides 8.6 MG TABLET PO SCH ×2 (08:20→20:24)
[2021-10-29] MEDS: carvediloL 25 MG TABLET PO SCH ×3 (08:20→17:39)
[2021-10-29] MEDS: BuPROPion SR (12 HR) 150 MG TABLET PO SCH ×2 (08:21→20:24)
[2021-10-29] MEDS ORDERED: 0.9 % Sodium Chloride 1,000 ML ONE (13:40)
[2021-10-29] MEDS: Gabapentin 100 MG CAPSULE PO SCH ×2 (14:56→20:25)
[2021-10-29] MEDS ORDERED: *HR* Warfarin 4 MG TABLET PO ONE (18:00)
[2021-10-29] MEDS: traZODone 50 MG TABLET PO SCH (20:22)
[2021-10-30] MEDS: Levothyroxine 25 MCG TABLET PO SCH (05:15)
[2021-10-30 05:20] LABS: Hemoglobin 11.2 g/dL (11.5-15.4); Mean Corpuscular HGB Conc 30.3 g/dL (31.6-35.5); Mean Corpuscular Hemoglobin 25.1 pg (28.0-33.3); Mean Corpuscular Volume 82.8 fL (83.0-100.0); Mean Platelet Volume 9.2 fL (9.4-12.4); Platelet Count 282 K/mcL (140-400); Red Blood Count 4.47 M/mcL (3.82-4.97); Red Cell Distribution Width 14.6 % (11.5-14.5); White Blood Count 5.7 K/mcL (4.3-11.1)
[2021-10-30 05:25] LABS: INR 3.5; Prothrombin Time 38.3 Seconds (9.4-12.1)
[2021-10-30 05:38] LABS: Albumin 2.8 g/dL (3.5-5.7); Albumin/Globulin Ratio 0.8 (1.1-2.2); Bilirubin,Total 0.3 mg/dL (0.3-1.0); Calcium 9.7 mg/dL (8.6-10.3); Globulin 3.3 g/dL (2.4-3.5); Magnesium 1.7 mg/dL (1.6-2.6); Potassium 4.4 mEq/L (3.5-5.1); Total Protein 6.1 g/dL (6.4-8.9)
[2021-10-30] MEDS: Magnesium Oxide 400 MG TABLET PO SCH ×2 (07:51→21:05)
[2021-10-30] MEDS: BuPROPion SR (12 HR) 150 MG TABLET PO SCH ×2 (07:52→21:03)
[2021-10-30] MEDS: *HR* GlipiZIDE XL (24 HR) 2.5 MG TABLET PO SCH (07:52)
[2021-10-30] MEDS: Sennosides 8.6 MG TABLET PO SCH ×2 (07:52→21:03)
[2021-10-30] MEDS: Gabapentin 100 MG CAPSULE PO SCH ×3 (07:53→21:02)
[2021-10-30] MEDS: carvediloL 25 MG TABLET PO SCH ×2 (07:53→16:36)
[2021-10-30] MEDS: traZODone 50 MG TABLET PO SCH (21:04)
[2021-10-31] MEDS: Levothyroxine 25 MCG TABLET PO SCH (05:48)
[2021-10-31 06:21] LABS: INR 3.5; Prothrombin Time 38.8 Seconds (9.4-12.1)
[2021-10-31] MEDS: carvediloL 25 MG TABLET PO SCH ×2 (10:14→17:15)
[2021-10-31] MEDS: BuPROPion SR (12 HR) 150 MG TABLET PO SCH ×2 (10:19→20:58)
[2021-10-31] MEDS: Sennosides 8.6 MG TABLET PO SCH ×2 (10:19→20:57)
[2021-10-31] MEDS: Gabapentin 100 MG CAPSULE PO SCH ×3 (10:19→20:56)
[2021-10-31] MEDS: Magnesium Oxide 400 MG TABLET PO SCH ×2 (10:19→20:57)
[2021-10-31] MEDS: *HR* GlipiZIDE XL (24 HR) 2.5 MG TABLET PO SCH (10:33)
[2021-10-31] MEDS: CloNIDine Patch 0.3 MG PATCH (WEEKLY) TD SCH (17:03)
[2021-10-31] MEDS ORDERED: CloNIDine Patch 0.3 MG PATCH (WEEKLY) TD SCH (19:00)
[2021-10-31] MEDS: traZODone 50 MG TABLET PO SCH (20:57)
[2021-11-01] MEDS: Levothyroxine 25 MCG TABLET PO SCH ×2 (05:42→05:43)
[2021-11-01 06:22] LABS: INR 2.2; Prothrombin Time 24.6 Seconds (9.4-12.1)
[2021-11-01] MEDS: carvediloL 25 MG TABLET PO SCH ×2 (07:55→17:20)
[2021-11-01] MEDS: Gabapentin 100 MG CAPSULE PO SCH ×3 (07:55→20:40)
[2021-11-01] MEDS: Sennosides 8.6 MG TABLET PO SCH ×2 (07:55→20:40)
[2021-11-01] MEDS: BuPROPion SR (12 HR) 150 MG TABLET PO SCH ×2 (07:55→20:38)
[2021-11-01] MEDS: *HR* GlipiZIDE XL (24 HR) 2.5 MG TABLET PO SCH (07:56)
[2021-11-01] MEDS: Magnesium Oxide 400 MG TABLET PO SCH ×2 (07:56→20:39)
[2021-11-01] MEDS: methocarbamoL 500 MG TABLET PO PRN (08:02)
[2021-11-01] MEDS ORDERED: *HR* Warfarin 4 MG TABLET PO ONE (18:00)
[2021-11-01] MEDS: traZODone 50 MG TABLET PO SCH (20:39)
[2021-11-02 06:29] LABS: INR 2.6; Prothrombin Time 28.5 Seconds (9.4-12.1)
[2021-11-02] MEDS: Magnesium Oxide 400 MG TABLET PO SCH ×2 (08:09→20:43)
[2021-11-02] MEDS: Gabapentin 100 MG CAPSULE PO SCH ×3 (08:10→20:43)
[2021-11-02] MEDS: BuPROPion SR (12 HR) 150 MG TABLET PO SCH ×2 (08:10→20:43)
[2021-11-02] MEDS: carvediloL 25 MG TABLET PO SCH ×2 (08:10→16:08)
[2021-11-02] MEDS: *HR* GlipiZIDE XL (24 HR) 2.5 MG TABLET PO SCH (08:10)
[2021-11-02] MEDS: Sennosides 8.6 MG TABLET PO SCH ×2 (08:10→20:43)
[2021-11-02] MEDS ORDERED: *HR* Warfarin 2.5 MG TABLET PO ONE (18:00)
[2021-11-02] MEDS: traZODone 50 MG TABLET PO SCH (20:43)
[2021-11-03] MEDS: Levothyroxine 25 MCG TABLET PO SCH (05:42)
[2021-11-03 05:48] LABS: INR 3.7; Prothrombin Time 40.6 Seconds (9.4-12.1)
[2021-11-03] MEDS: *HR* GlipiZIDE XL (24 HR) 2.5 MG TABLET PO SCH (08:30)
[2021-11-03] MEDS: BuPROPion SR (12 HR) 150 MG TABLET PO SCH (08:30)
[2021-11-03] MEDS: Sennosides 8.6 MG TABLET PO SCH ×2 (08:30→20:17)
[2021-11-03] MEDS: Gabapentin 100 MG CAPSULE PO SCH ×3 (08:30→20:17)
[2021-11-03] MEDS: carvediloL 25 MG TABLET PO SCH ×2 (08:30→15:19)
[2021-11-03] MEDS: Magnesium Oxide 400 MG TABLET PO SCH ×2 (08:31→20:17)
[2021-11-04 04:44] LABS: Hemoglobin 10.2 g/dL (11.5-15.4); Mean Corpuscular Hemoglobin 24.7 pg (28.0-33.3); Mean Corpuscular Volume 82.3 fL (83.0-100.0); Mean Platelet Volume 9.3 fL (9.4-12.4); Platelet Count 277 K/mcL (140-400); Red Blood Count 4.13 M/mcL (3.82-4.97); Red Cell Distribution Width 14.9 % (11.5-14.5); White Blood Count 7.8 K/mcL (4.3-11.1)
[2021-11-04 04:46] LABS: Prothrombin Time 32.7 Seconds (9.4-12.1)
[2021-11-04 05:00] LABS: Albumin 2.7 g/dL (3.5-5.7); Albumin/Globulin Ratio 0.8 (1.1-2.2); Bilirubin,Total 0.3 mg/dL (0.3-1.0); Calcium 9.4 mg/dL (8.6-10.3); Globulin 3.3 g/dL (2.4-3.5); Magnesium 1.6 mg/dL (1.6-2.6); Potassium 4.5 mEq/L (3.5-5.1)
[2021-11-04] MEDS: Levothyroxine 25 MCG TABLET PO SCH (06:20)
[2021-11-04] MEDS: Gabapentin 100 MG CAPSULE PO SCH ×3 (08:00→19:56)
[2021-11-04] MEDS: *HR* GlipiZIDE XL (24 HR) 2.5 MG TABLET PO SCH (08:00)
[2021-11-04] MEDS: carvediloL 25 MG TABLET PO SCH ×2 (08:00→16:45)
[2021-11-04] MEDS: Sennosides 8.6 MG TABLET PO SCH ×2 (08:00→19:56)
[2021-11-04] MEDS: Magnesium Oxide 400 MG TABLET PO SCH ×2 (08:01→19:56)
[2021-11-04] MEDS ORDERED: *HR* Warfarin 1 MG TABLET PO ONE (18:00)
[2021-11-04] MEDS ORDERED: BuPROPion XL (24 HR) 150 MG TABLET PO SCH (21:00)
[2021-11-05 04:33] VITALS: RESP 16
[2021-11-05 05:14] LABS: INR 2.1; Prothrombin Time 23.6 Seconds (9.4-12.1)
[2021-11-05] MEDS: Levothyroxine 25 MCG TABLET PO SCH (06:28)
[2021-11-05] MEDS: carvediloL 25 MG TABLET PO SCH ×2 (08:34→17:42)
[2021-11-05] MEDS: Magnesium Oxide 400 MG TABLET PO SCH (08:34)
[2021-11-05] MEDS: Sennosides 8.6 MG TABLET PO SCH (08:34)
[2021-11-05] MEDS: Gabapentin 100 MG CAPSULE PO SCH ×2 (08:34→17:42)
[2021-11-05] MEDS: *HR* GlipiZIDE XL (24 HR) 2.5 MG TABLET PO SCH (08:34)
[2021-11-05 16:52] VITALS: BP 155/73; PULSE 67; TEMP 98.4; O2SAT 93
[2021-11-05] MEDS ORDERED: *HR* Warfarin 2.5 MG TABLET PO ONE (18:00)
== END 2021-11-05 18:05 | DRG 305 ==
LOC: INPGRE 21:05
PROVIDERS: ADMIT Family Medicine; ATTEND Family Medicine